=== PATIENT | male | born 1960 | race African-American/Black ===

== ENCOUNTER 2017-03-17 09:12 | Emergency (ER) | payer MEDICAID ==
[~2017-03-17] VITALS: Ht 162.6 cm; Wt 102.5 kg
[2017-03-17] MEDS ORDERED: ONDANSETRON HCL 4MG/2ML VIAL IV STA (09:36)
[2017-03-17] MEDS ORDERED: MORPHINE SULFATE 4 MG/ML CPJ (NOT FOR IM USE) IV STA (09:36)
[2017-03-17] MEDS ORDERED: SODIUM CHLORIDE 0.9% 1,000 ML IV ONE (09:36)
[2017-03-17 09:58] LABS: HEMOGLOBIN. 14.3 g/dL (14.0-18.0); MEAN CORPUSCULAR VOLUME 79.9 fL (80.0-94.0); MEAN PLATELET VOLUME 9.4 fl (7.4-10.4); PLATELET 182 x1000/uL (130-400); RED BLOOD CELL COUNT 5.51 mill/uL (4.7-6.1); RED CELL DISTRIBUTION WIDTH 21.4 % (11.6-14.6)
[2017-03-17 10:08] LABS: INR 1.1; PARTIAL THROMBOPLASTIN TIME 31.7 sec (24.0-34.0); PROTHROMBIN TIME 11.9 sec
[2017-03-17 10:13] LABS: CARBON DIOXIDE 26 mEq/L (21-32); CHLORIDE 110 mEq/L (98-107)
[2017-03-17 10:14] LABS: PLATELET ESTIMATE NORMAL
[2017-03-17] MEDS ORDERED: MORPHINE SULFATE 4 MG/ML CPJ (NOT FOR IM USE) IV ONE ×2 (11:30→12:45)
[2017-03-17 11:47] LABS: CLARITY URINE CLEAR (CLEAR); COLOR URINE YELLOW (YELLOW); GLUCOSE URINE NEGATIVE (NEGATIVE); KETONES URINE NEGATIVE (NEGATIVE); LEUKOCYTE ESTERASE URINE NEGATIVE (NEGATIVE); NITRITE URINE NEGATIVE (NEGATIVE); OCCULT BLOOD URINE NEGATIVE (NEGATIVE); PH URINE 5.5 (4.5-8.0); PROTEIN URINE NEGATIVE (NEGATIVE); SPECIFIC GRAVITY URINE 1.033 (1.005-1.030); UROBILINOGEN URINE 0.2 E.U./dL (0.2-1.0)
[2017-03-17] MEDS ORDERED: LEVOFLOXACIN 750MG PREMIX 150 ML IV ONE (12:00)
[2017-03-17] MEDS ORDERED: METRONIDAZOLE 500 MG PREMIX 100 ML IV ONE (12:00)
[2017-03-17] MEDS ORDERED: SODIUM CHLORIDE 0.9% 10ML VIAL ONE (13:57)
[2017-03-17] MEDS ORDERED: IOHEXOL-300 100 ML BOTTLE ONE (13:57)
[2017-03-17 14:38] VITALS: BP 138/73
== END 2017-03-17 14:38 | disposition short-term general hospital (02) ==
LOC: ER 09:36
DX: K57.30 Diverticulosis of large intestine without perforation or abscess without bleeding (principal); N20.0 Calculus of kidney; K62.5 Hemorrhage of anus and rectum; D18.03 Hemangioma of intra-abdominal structures; E78.00 Pure hypercholesterolemia, unspecified; I10 Essential (primary) hypertension; Z88.0 Allergy status to penicillin; Z88.2 Allergy status to sulfonamides; Z87.828 Personal history of other (healed) physical injury and trauma; Z98.890 Other specified postprocedural states
CPT/HCPCS: 36415; 71010; 74177; 80053; 81003; 83690; 85025; 85610; 85730; 86850; 86900; 86901; 93005; 96361; 96365; 96375; 96376; 99285; A4216; J1956; J2270; J2405; J3490; J7030; Q9967; Z7610

== ENCOUNTER 2019-04-11 07:25 | Emergency (ER) | payer MEDICAID ==
[~2019-04-11] VITALS: Ht 170.2 cm; Wt 88.0 kg
[2019-04-11] MEDS ORDERED: ONDANSETRON HCL 4MG/2ML INJ IV STA ×2 (08:24→12:06)
[2019-04-11] MEDS ORDERED: SODIUM CHLORIDE 0.9% 1,000 ML IV ONE (08:24)
[2019-04-11] MEDS ORDERED: MORPHINE SULFATE 4 MG/ML CPJ (NOT FOR IM USE) IV STA ×2 (08:24→12:06)
[2019-04-11] MEDS ORDERED: VANCOMYCIN 1 G PREMIX 200 ML IV ONE (09:00)
[2019-04-11] MEDS ORDERED: SODIUM CHLORIDE 0.9% 1000ML BAG (SEPSIS BOLUS) IV ONE (09:00)
[2019-04-11] MEDS ORDERED: PIPERACILLIN/TAZ 3.375G PREMIX 50 ML IV ONE (09:00)
[2019-04-11 09:54] LABS: CLARITY URINE CLEAR (CLEAR); COLOR URINE YELLOW (YELLOW); KETONES URINE NEGATIVE (NEGATIVE); LEUKOCYTE ESTERASE URINE TRACE (NEGATIVE); NITRITE URINE NEGATIVE (NEGATIVE); OCCULT BLOOD URINE NEGATIVE (NEGATIVE); PH URINE 5.5 (4.5-8.0); PROTEIN URINE NEGATIVE (NEGATIVE); SPECIFIC GRAVITY URINE 1.026 (1.005-1.030); UROBILINOGEN URINE 0.2 E.U./dL (0.2-1.0)
[2019-04-11 09:59] LABS: HEMATOCRIT. 39.5 % (42.0-52.0); MEAN CORPUSCULAR HEMOGLOBIN 27.4 pg (28.0-32.0); MEAN CORPUSCULAR VOLUME 83.1 fL (80.0-94.0); MEAN PLATELET VOLUME 8.5 fl (7.4-10.4); PLATELET 450 x1000/uL (130-400); RED BLOOD CELL COUNT 4.75 mill/uL (4.7-6.1); RED CELL DISTRIBUTION WIDTH 17.6 % (11.6-14.6)
[2019-04-11 10:00] LABS: CHLORIDE 109 mEq/L (98-107)
[2019-04-11 10:26] LABS: PLATELET ESTIMATE INCREASED
[2019-04-11] MEDS ORDERED: IOHEXOL-300 100 ML BOTTLE ONE (10:55)
[2019-04-11 14:00] VITALS: BP 150/77
== END 2019-04-11 14:10 | disposition home or self-care (01) ==
LOC: ER 07:25
DX: R10.9 Unspecified abdominal pain (principal); N50.819 Testicular pain, unspecified; N12 Tubulo-interstitial nephritis, not specified as acute or chronic; E78.00 Pure hypercholesterolemia, unspecified; I10 Essential (primary) hypertension; Z88.0 Allergy status to penicillin; Z88.2 Allergy status to sulfonamides
CPT/HCPCS: 36415; 74177; 76870; 80053; 81003; 83605; 83690; 85025; 87040; 87086; 93976; 96361; 96374; 96375; 96376; 99284; J2270; J2405; J2543; J3370; J7030; Q9967; Z7610

== ENCOUNTER 2020-03-02 09:52 | Emergency (ER) | payer MEDICAID ==
[~2020-03-02] VITALS: Ht 167.6 cm; Wt 82.0 kg
[2020-03-02] MEDS ORDERED: zofran (10:07)
[2020-03-02] MEDS ORDERED: hydrocodone (10:07)
[2020-03-02] MEDS ORDERED: nitroglycerin (10:07)
[2020-03-02] MEDS ORDERED: lipitor (10:07)
[2020-03-02] MEDS ORDERED: MORPHINE SULFATE 4 MG/ML CPJ (NOT FOR IM USE) IV STA (10:26)
[2020-03-02] MEDS ORDERED: ONDANSETRON HCL 4MG/2ML INJ IV STA (10:26)
[2020-03-02] MEDS ORDERED: ASPIRIN 325MG EC TABLET PO ONE (10:30)
[2020-03-02 11:28] LABS: HEMATOCRIT. 44.9 % (42.0-52.0); HEMOGLOBIN. 14.5 g/dL (14.0-18.0); MEAN CORPUSCULAR HEMOGLOBIN 28.1 pg (28.0-32.0); MEAN CORPUSCULAR VOLUME 86.9 fL (80.0-94.0); MEAN PLATELET VOLUME 8.2 fl (7.4-10.4); PLATELET 461 x1000/uL (130-400); RED BLOOD CELL COUNT 5.17 mill/uL (4.7-6.1); RED CELL DISTRIBUTION WIDTH 20.1 % (11.6-14.6)
[2020-03-02 11:36] LABS: INR 1.1
[2020-03-02 11:37] LABS: CHLORIDE 111 mEq/L (98-107)
[2020-03-02 11:41] LABS: PLATELET ESTIMATE SLIGHTLY INCREASED
[2020-03-02 12:32] LABS: CLARITY URINE TURBID (CLEAR); COLOR URINE YELLOW (YELLOW); KETONES URINE NEGATIVE (NEGATIVE); LEUKOCYTE ESTERASE URINE NEGATIVE (NEGATIVE); NITRITE URINE NEGATIVE (NEGATIVE); OCCULT BLOOD URINE NEGATIVE (NEGATIVE); PH URINE 8.5 (4.5-8.0); PROTEIN URINE NEGATIVE (NEGATIVE); SPECIFIC GRAVITY URINE 1.021 (1.005-1.030); UROBILINOGEN URINE 0.2 E.U./dL (0.2-1.0)
[2020-03-02] MEDS ORDERED: MORPHINE SULFATE 2 MG/ML CPJ (NOT FOR IM USE) IV ONE (14:15)
[2020-03-02 16:00] VITALS: BP 169/95
[2020-03-03] MEDS ORDERED: IOHEXOL-300 100 ML BOTTLE ONE (09:19)
== END 2020-03-02 16:23 | disposition short-term general hospital (02) ==
LOC: ER 10:12 → CANBEDREQ 17:16
DX: R07.9 Chest pain, unspecified (principal); R10.9 Unspecified abdominal pain; K57.90 Diverticulosis of intestine, part unspecified, without perforation or abscess without bleeding; J44.9 Chronic obstructive pulmonary disease, unspecified; E78.00 Pure hypercholesterolemia, unspecified; I10 Essential (primary) hypertension; Z88.0 Allergy status to penicillin; Z88.2 Allergy status to sulfonamides; Z85.830 Personal history of malignant neoplasm of bone; Z98.890 Other specified postprocedural states; Z87.891 Personal history of nicotine dependence
CPT/HCPCS: 36415; 71045; 74177; 80053; 81003; 83690; 83880; 84484; 85025; 85610; 93005; 96374; 96375; 96376; 99285; J2270; J2405; Q9967

== ENCOUNTER 2020-03-23 20:55 | Emergency (ER) | payer MEDICAID ==
[~2020-03-23] VITALS: Ht 188 cm; Wt 95.0 kg
[~2020-03-23 20:55] MED LIST: hydrocodone; lipitor; nitroglycerin; zofran
[2020-03-23] MEDS ORDERED: ASPIRIN 81MG TABLET PO ONE (21:45)
[2020-03-23] MEDS ORDERED: VISCOUS LIDOCAINE 2% 15 ML UDC PO ONE (22:30)
[2020-03-23] MEDS ORDERED: MAGNESIUM/ALUMINUM HYDROXIDE/SIMETHICONE 30ML UDC PO ONE (22:30)
[2020-03-23] MEDS ORDERED: NITROGLYCERIN 0.4MG TABLET SL SL PRN (22:30)
[2020-03-23 23:25] LABS: CHLORIDE 112 mEq/L (98-107)
[2020-03-23] MEDS ORDERED: KETOROLAC 15MG/ML VIAL IV ONE (23:30)
[2020-03-23] MEDS ORDERED: SODIUM CHLORIDE 0.9% 500 ML IV ONE (23:30)
[2020-03-24 00:13] LABS: BASOPHILS % 0.6 % (0.0-2.0); EOSINOPHILS % 1.5 % (0.0-5.0); HEMATOCRIT. 45.1 % (42.0-52.0); LYMPHOCYTES % 7.9 % (20.0-50.0); MEAN CORPUSCULAR HEMOGLOBIN 29.5 pg (28.0-32.0); MEAN CORPUSCULAR VOLUME 88.5 fL (80.0-94.0); MEAN PLATELET VOLUME 8.2 fl (7.4-10.4); MONOCYTES % 4.9 % (2.0-8.0); NEUTROPHILS % 85.1 % (40.0-76.0); PLATELET 334 x1000/uL (130-400); RED CELL DISTRIBUTION WIDTH 20.4 % (11.6-14.6)
[2020-03-24 01:30] VITALS: BP 164/92
[2020-03-24] MEDS ORDERED: MORPHINE SULFATE 4 MG/ML CPJ (NOT FOR IM USE) IV NR (01:45)
[2020-03-24] MEDS ORDERED: CLONIDINE 0.1MG TABLET PO PRN (02:00)
[2020-03-24] MEDS ORDERED: MORPHINE SULFATE 4 MG/ML CPJ (NOT FOR IM USE) IV PRN (02:00)
[2020-03-24] MEDS ORDERED: DIPHENHYDRAMINE 50MG/ML VIAL IV PRN (02:00)
[2020-03-24] MEDS ORDERED: ONDANSETRON HCL 4MG/2ML INJ IV PRN (02:00)
[2020-03-24] MEDS ORDERED: GUAIFENESIN 200MG/10ML SUGAR FREE UDC PO PRN (02:00)
[2020-03-24] MEDS ORDERED: ZOLPIDEM TARTRATE 5MG TABLET PO PRN (02:00)
[2020-03-24] MEDS ORDERED: ACETAMINOPHEN 325MG TABLET PO PRN ×2 (02:00)
[2020-03-24] MEDS ORDERED: MAGNESIUM/ALUMINUM HYDROXIDE/SIMETHICONE 30ML UDC PO PRN (02:00)
[2020-03-24] MEDS ORDERED: HYDRALAZINE 20MG/ML VIAL IV PRN (03:15)
[2020-03-24] MEDS ORDERED: ENOXAPARIN 30MG/0.3ML SYR SUBCUT SCH (04:00)
[2020-03-24] MEDS ORDERED: SODIUM CHLORIDE 0.9% INJ 3ML FLUSH IVF SCH (06:00)
[2020-03-24 07:37] LABS: *AMPHETAMINES SCREEN URINE NEGATIVE (NEGATIVE); *BARBITURATES SCREEN URINE NEGATIVE (NEGATIVE); *BENZODIAZEPINES SCREEN URINE NEGATIVE (NEGATIVE); *COCAINE SCREEN URINE NEGATIVE (NEGATIVE); METHADONE URINE SCREEN NEGATIVE (NEGATIVE); OPIATES URINE SCREEN NEGATIVE (NEGATIVE); PHENCYCLIDINE URINE SCREEN NEGATIVE (NEGATIVE)
[2020-03-24 07:38] LABS: CANNABINOID URINE SCREEN NEGATIVE (NEGATIVE)
[2020-03-24] MEDS ORDERED: OMEPRAZOLE 20MG CAPSULE EXTENDED RELEASE PO SCH (07:50)
[2020-03-24] MEDS ORDERED: ATENOLOL 50 MG TABLET PO SCH (09:00)
[2020-03-24] MEDS ORDERED: AMLODIPINE 10MG TABLET PO SCH (09:00)
[2020-03-24] MEDS ORDERED: ISOSORBIDE MONONITRATE 60MG TABLET SR 24HR PO SCH (09:00)
[2020-03-24] MEDS ORDERED: ATORVASTATIN CALCIUM 40MG TABLET PO SCH (21:00)
== END 2020-03-24 05:29 | disposition left against medical advice (07) ==
LOC: ER 20:55 → EDBEDREQTM 23:53 → EDBEDREQ 23:53 → ER 03-24 05:29 → CANBEDREQ 03-24 06:45
DX: R07.9 Chest pain, unspecified (principal); I10 Essential (primary) hypertension; E78.00 Pure hypercholesterolemia, unspecified; J44.9 Chronic obstructive pulmonary disease, unspecified; Z88.0 Allergy status to penicillin; Z88.2 Allergy status to sulfonamides
CPT/HCPCS: 36415; 71045; 80053; 80305; 83880; 84484; 85025; 93005; 96374; 96375; 99285; J1885; J2270; J7040; Z7610

== ENCOUNTER 2020-06-09 21:28 | Emergency (ER) | payer MEDICAID ==
[~2020-06-09] VITALS: Ht 165.1 cm; Wt 99.0 kg
[2020-06-09] MEDS ORDERED: MORPHINE SULFATE 4 MG/ML CPJ (NOT FOR IM USE) IV STA (21:53)
[2020-06-09] MEDS ORDERED: FAMOTIDINE 20MG/2ML VIAL IV STA (21:53)
[2020-06-09] MEDS ORDERED: ONDANSETRON HCL 4MG/2ML INJ IV STA (21:53)
[2020-06-09] MEDS ORDERED: SODIUM CHLORIDE 0.9% 1,000 ML IV ONE (21:53)
[2020-06-09 22:44] LABS: HEMOGLOBIN. 15.5 g/dL (14.0-18.0); MEAN CORPUSCULAR HEMOGLOBIN 32.2 pg (28.0-32.0); MEAN CORPUSCULAR VOLUME 93.7 fL (80.0-94.0); MEAN PLATELET VOLUME 9.1 fl (7.4-10.4); PLATELET 325 x1000/uL (130-400); RED BLOOD CELL COUNT 4.81 mill/uL (4.7-6.1); RED CELL DISTRIBUTION WIDTH 16.9 % (11.6-14.6)
[2020-06-09 22:45] LABS: CLARITY URINE TURBID (CLEAR); COLOR URINE DARK YELLOW (YELLOW); KETONES URINE NEGATIVE (NEGATIVE); LEUKOCYTE ESTERASE URINE 2+ (NEGATIVE); NITRITE URINE POSITIVE (NEGATIVE); OCCULT BLOOD URINE NEGATIVE (NEGATIVE); PH URINE >=9.0 (4.5-8.0); PROTEIN URINE 2+ (NEGATIVE); SPECIFIC GRAVITY URINE 1.028 (1.005-1.030)
[2020-06-09 22:50] LABS: CHLORIDE 107 mEq/L (98-107)
[2020-06-09 22:56] LABS: PLATELET ESTIMATE NORMAL
[2020-06-09] MEDS ORDERED: METRONIDAZOLE 500 MG PREMIX 100 ML IV NR (23:15)
[2020-06-09] MEDS ORDERED: LEVOFLOXACIN 750MG PREMIX 150 ML IV NR (23:15)
[2020-06-09] MEDS ORDERED: IOHEXOL-300 100 ML BOTTLE ONE (23:29)
[2020-06-10] MEDS ORDERED: MORPHINE SULFATE 4 MG/ML CPJ (NOT FOR IM USE) IV NR
[2020-06-10 02:18] VITALS: BP 156/98
== END 2020-06-10 02:47 | disposition short-term general hospital (02) ==
LOC: ER 21:28
DX: N30.90 Cystitis, unspecified without hematuria (principal); R16.1 Splenomegaly, not elsewhere classified; R11.2 Nausea with vomiting, unspecified; I10 Essential (primary) hypertension; J45.909 Unspecified asthma, uncomplicated; Z88.0 Allergy status to penicillin; Z88.2 Allergy status to sulfonamides
CPT/HCPCS: 36415; 74177; 80053; 81003; 83605; 83690; 85025; 93005; 96361; 96365; 96367; 96375; 96376; 99285; J1956; J2270; J2405; J3490; J7030; Q9967

== ENCOUNTER 2020-08-28 02:12 | Emergency (ER) | payer MEDICAID ==
[~2020-08-28] VITALS: Ht 175.3 cm; Wt 84.0 kg
[2020-08-28] MEDS ORDERED: MORPHINE SULFATE 4 MG/ML CPJ (NOT FOR IM USE) IV STA (02:42)
[2020-08-28] MEDS ORDERED: NITROGLYCERIN OINT 1GM/INCH UDPKT TD ONE (02:45)
[2020-08-28] MEDS ORDERED: IOHEXOL-350 100 ML BOTTLE ONE (02:58)
[2020-08-28 03:17] LABS: CHLORIDE 112 mEq/L (98-107)
[2020-08-28 03:20] LABS: INR 1.1; PROTHROMBIN TIME 11.2 sec (9.6-11.0)
[2020-08-28 03:32] LABS: BASOPHILS % 0.5 % (0.0-2.0); EOSINOPHILS % 1.1 % (0.0-5.0); HEMATOCRIT. 41.1 % (42.0-52.0); LYMPHOCYTES % 8.4 % (20.0-50.0); MEAN CORPUSCULAR HEMOGLOBIN 32.4 pg (28.0-32.0); MEAN PLATELET VOLUME 8.7 fl (7.4-10.4); MONOCYTES % 4.8 % (2.0-8.0); NEUTROPHILS % 85.2 % (40.0-76.0); PLATELET 380 x1000/uL (130-400); RED BLOOD CELL COUNT 4.33 mill/uL (4.7-6.1); RED CELL DISTRIBUTION WIDTH 16.2 % (11.6-14.6)
[2020-08-28] MEDS ORDERED: MORPHINE SULFATE 2 MG/ML CPJ (NOT FOR IM USE) IV ONE (05:30)
[2020-08-28 09:05] VITALS: BP 148/91
== END 2020-08-28 11:11 | disposition short-term general hospital (02) ==
LOC: ER 02:12 → CANBEDREQ 16:46
DX: R07.89 Other chest pain (principal); E11.9 Type 2 diabetes mellitus without complications; I10 Essential (primary) hypertension; Z88.0 Allergy status to penicillin; Z88.2 Allergy status to sulfonamides
CPT/HCPCS: 36415; 71045; 71275; 74174; 80053; 83880; 84484; 85025; 85610; 93005; 96374; 96376; 99285; J2270; Q9967

== ENCOUNTER 2021-12-11 23:25 | Emergency (ER) | payer MEDICAID ==
[~2021-12-11] VITALS: Ht 177.8 cm; Wt 70.0 kg
[2021-12-11] MEDS ORDERED: MORPHINE SULFATE 4 MG/ML CPJ (NOT FOR IM USE) IV STA (23:57)
[2021-12-11] MEDS ORDERED: ONDANSETRON HCL 4MG/2ML INJ IV STA (23:57)
[2021-12-12] MEDS ORDERED: NITROGLYCERIN OINT 1GM/INCH UDPKT TD ONE
[2021-12-12 00:46] LABS: BASOPHILS % 0.4 % (0.0-2.0); CHLORIDE 111 mEq/L (98-107); EOSINOPHILS % 0.7 % (0.0-5.0); HEMATOCRIT. 41.1 % (42.0-52.0); HEMOGLOBIN. 14.4 g/dL (14.0-18.0); LYMPHOCYTES % 7.5 % (20.0-50.0); MEAN CORPUSCULAR HEMOGLOBIN 33.1 pg (28.0-32.0); MEAN CORPUSCULAR VOLUME 94.7 fL (80.0-94.0); MONOCYTES % 4.1 % (2.0-8.0); NEUTROPHILS % 87.3 % (40.0-76.0); RED BLOOD CELL COUNT 4.34 mill/uL (4.7-6.1); RED CELL DISTRIBUTION WIDTH 18.7 % (11.6-14.6)
[2021-12-12 03:43] LABS: MEAN PLATELET VOLUME 7.8 fl (7.4-10.4); PLATELET 356 x1000/uL (130-400)
[2021-12-12] MEDS ORDERED: MORPHINE SULFATE 4 MG/ML CPJ (NOT FOR IM USE) IV ONE ×3 (04:45→11:15)
[2021-12-12] MEDS ORDERED: IOHEXOL-350 100 ML BOTTLE ONE (05:16)
[2021-12-12] MEDS ORDERED: MAGNESIUM/ALUMINUM HYDROXIDE/SIMETHICONE 30ML UDC PO STA (05:31)
[2021-12-12] MEDS ORDERED: VISCOUS LIDOCAINE 2% 15 ML UDC PO STA (05:31)
[2021-12-12] MEDS ORDERED: NITROGLYCERIN 0.4MG TABLET SL SL ONE (07:00)
[2021-12-12] MEDS ORDERED: ACETAMINOPHEN 325MG TABLET PO ONE (09:30)
[2021-12-12 11:25] VITALS: BP 113/82
== END 2021-12-12 12:22 | disposition short-term general hospital (02) ==
LOC: ER 23:25
DX: R07.89 Other chest pain (principal); R11.0 Nausea; E11.9 Type 2 diabetes mellitus without complications; I10 Essential (primary) hypertension; Z88.0 Allergy status to penicillin; Z88.2 Allergy status to sulfonamides; Z85.6 Personal history of leukemia
CPT/HCPCS: 36415; 71045; 71275; 74176; 80053; 83605; 83690; 83880; 84484; 85025; 85379; 96374; 96375; 96376; 99285; J2270; J2405; Q9967

== ENCOUNTER 2022-08-16 12:24 | Inpatient (IN) | payer MEDICAID ==
[~2022-08-16] VITALS: Ht 172.7 cm; Wt 96.6 kg
[2022-08-16] MEDS ORDERED: ONDANSETRON HCL 4MG/2ML INJ IV STA ×3 (12:43→19:35)
[2022-08-16] MEDS ORDERED: MORPHINE SULFATE 4 MG/ML CPJ (NOT FOR IM USE) IV STA ×3 (12:43→19:35)
[2022-08-16] MEDS ORDERED: SODIUM CHLORIDE 0.9% 1000ML BAG (SEPSIS BOLUS) IV ONE (12:45)
[2022-08-16] MEDS ORDERED: SODIUM CHLORIDE 0.9% 1,000 ML IV ONE (12:45)
[2022-08-16] MEDS ORDERED: OSELTAMIVIR 75MG CAPSULE PO ONE (13:00)
[2022-08-16 14:09] LABS: CHLORIDE 112 mEq/L (98-107); INR 1.1; PROTHROMBIN TIME 11.5 sec (9.6-11.0)
[2022-08-16 14:42] LABS: BASOPHILS % 0.5 % (0.0-2.0); EOSINOPHILS % 1.8 % (0.0-5.0); HEMATOCRIT. 41.9 % (42.0-52.0); HEMOGLOBIN. 14.1 g/dL (14.0-18.0); LYMPHOCYTES % 8.4 % (20.0-50.0); MEAN CORPUSCULAR HEMOGLOBIN 33.5 pg (28.0-32.0); MEAN CORPUSCULAR VOLUME 99.3 fL (80.0-94.0); MEAN PLATELET VOLUME 8.3 fl (7.4-10.4); MONOCYTES % 5.5 % (2.0-8.0); NEUTROPHILS % 83.8 % (40.0-76.0); PLATELET 314 x1000/uL (130-400); RED BLOOD CELL COUNT 4.22 mill/uL (4.7-6.1); RED CELL DISTRIBUTION WIDTH 15.2 % (11.6-14.6)
[2022-08-16] MEDS ORDERED: ASPIRIN 325MG EC TABLET PO ONE (15:15)
[2022-08-16 15:36] LABS: CLARITY URINE TURBID (CLEAR); COLOR URINE ORANGE (YELLOW); KETONES URINE NEGATIVE (NEGATIVE); LEUKOCYTE ESTERASE URINE 1+ (NEGATIVE); NITRITE URINE NEGATIVE (NEGATIVE); OCCULT BLOOD URINE NEGATIVE (NEGATIVE); PH URINE >=9.0 (4.5-8.0); PROTEIN URINE 1+ (NEGATIVE); SPECIFIC GRAVITY URINE 1.014 (1.005-1.030); UROBILINOGEN URINE 0.2 E.U./dL (0.2-1.0)
[2022-08-16] MEDS ORDERED: LEVOFLOXACIN 750MG PREMIX 150 ML IV ONE (17:00)
[2022-08-16] MEDS ORDERED: IPRATROPIUM/ALBUTEROL 0.5-3(2.5)MG/3ML NEB NEB SCH (19:00)
[2022-08-16] MEDS ORDERED: CEFTRIAXONE 1 G PREMIX 50 ML IV SCH (19:00)
[2022-08-16] MEDS ORDERED: HYDROCODONE/ACETAMINOPHEN 5/325MG TABLET PO PRN (19:00)
[2022-08-16] MEDS ORDERED: ONDANSETRON HCL 4MG/2ML INJ IV PRN (19:00)
[2022-08-16] MEDS ORDERED: CLONIDINE 0.1MG TABLET PO PRN (19:00)
[2022-08-16] MEDS ORDERED: ACETAMINOPHEN 325MG TABLET PO PRN ×2 (19:00)
[2022-08-16] MEDS ORDERED: MAGNESIUM/ALUMINUM HYDROXIDE/SIMETHICONE 30ML UDC PO PRN (19:00)
[2022-08-16] MEDS ORDERED: IPRATROPIUM/ALBUTEROL 0.5-3(2.5)MG/3ML NEB NEB PRN (19:00)
[2022-08-16] MEDS ORDERED: THROAT LOZENGES-BENZOCAINE/MENTH/CETYLPYRD CL LOZENGES MM PRN (19:30)
[2022-08-16 20:00] VITALS: BP 151/83
[2022-08-16 21:00] VITALS: BP 151/83
[2022-08-16] MEDS ORDERED: ENOXAPARIN 40MG/0.4ML SYR SUBCUT SCH (21:00)
[2022-08-16] MEDS ORDERED: CEFTRIAXONE 1,000 MG in DEXTROSE 5% WATER 50 ML IV SCH (21:00)
[2022-08-16] MEDS ORDERED: AZITHROMYCIN 500 MG in DEXT 5% WATER 250 ML IV SCH (22:00)
[2022-08-16] MEDS: HYDROCODONE/ACETAMINOPHEN 7.5/325MG TABLET PO PRN (22:46)
[2022-08-17] VITALS: BP 129/77
[2022-08-17] MEDS: NITROGLYCERIN 0.4MG TABLET SL SL PRN ×6 (00:43→04:43)
[2022-08-17 03:08] LABS: BASOPHILS % 0.5 % (0.0-2.0); EOSINOPHILS % 1.5 % (0.0-5.0); HEMATOCRIT. 43.2 % (42.0-52.0); HEMOGLOBIN. 14.3 g/dL (14.0-18.0); LYMPHOCYTES % 9.4 % (20.0-50.0); MEAN CORPUSCULAR HEMOGLOBIN 33.4 pg (28.0-32.0); MEAN CORPUSCULAR VOLUME 100.9 fL (80.0-94.0); MEAN PLATELET VOLUME 8.2 fl (7.4-10.4); MONOCYTES % 5.2 % (2.0-8.0); NEUTROPHILS % 83.4 % (40.0-76.0); PLATELET 292 x1000/uL (130-400); RED BLOOD CELL COUNT 4.28 mill/uL (4.7-6.1); RED CELL DISTRIBUTION WIDTH 15.2 % (11.6-14.6)
[2022-08-17 04:00] VITALS: BP 154/79
[2022-08-17 04:09] LABS: CHLORIDE 110 mEq/L (98-107)
[2022-08-17 04:27] LABS: T4 FREE 0.92 ng/dL (0.76-1.46)
[2022-08-17] MEDS: GUAIFENESIN 200MG/10ML SUGAR FREE UDC PO PRN ×2 (04:51→09:41)
[2022-08-17 08:34] VITALS: BP 158/95
[2022-08-17] MEDS ORDERED: ASCORBIC ACID 250 MG TABLET PO SCH (09:00)
[2022-08-17] MEDS ORDERED: DEXAMETHASONE 4MG/ML 1ML VIAL IV SCH (09:00)
[2022-08-17] MEDS ORDERED: CHOLECALCIFEROL (D3) 1000 UNIT TABLET PO SCH (09:00)
[2022-08-17] MEDS ORDERED: PANTOPRAZOLE SODIUM 40 MG/VIAL IV SCH (09:00)
[2022-08-17] MEDS ORDERED: ZINC SULFATE 220 MG ( 50 ) CAPSULE PO SCH (09:00)
[2022-08-17] MEDS ORDERED: ROSU40TA MT (10:38)
[2022-08-17] MEDS ORDERED: TAMS-11 PO (10:38)
[2022-08-17] MEDS ORDERED: HYDR500C18 PO (10:38)
[2022-08-17] MEDS ORDERED: CYAN50003 MT (10:44)
[2022-08-17] MEDS ORDERED: BACL-141 MT (10:44)
[2022-08-17] MEDS ORDERED: DULO20CA18 MT (10:44)
[2022-08-17] MEDS ORDERED: CHOL400D7 MT (10:44)
[2022-08-17] MEDS: HYDROCODONE/ACETAMINOPHEN 7.5/325MG TABLET PO PRN (10:52)
[2022-08-17] MEDS ORDERED: METO25TA6 PO (11:02)
[2022-08-17] MEDS ORDERED: ISOS20TA57 MT (11:02)
[2022-08-17] MEDS ORDERED: TAMSULOSIN HCL 0.4MG SR CAPSULE PO SCH (12:00)
[2022-08-17] MEDS ORDERED: METOPROLOL TARTRATE 25MG TABLET PO SCH (12:00)
[2022-08-17] MEDS ORDERED: DULOXETINE HCL 20MG DR CAPSULE PO SCH (12:00)
[2022-08-17] MEDS ORDERED: ISOSORBIDE MONONITRATE 20MG TABLET PO SCH (12:00)
[2022-08-17 12:08] VITALS: BP 135/80
[2022-08-17] MEDS ORDERED: HYDROXYUREA 500MG CAPSULE PO SCH (14:00)
[2022-08-17] MEDS ORDERED: GUAIFENESIN 200MG/10ML SUGAR FREE UDC PO SCH (16:00)
[2022-08-17] MEDS ORDERED: AZITHROMYCIN 500 MG in DEXT 5% WATER 250 ML IV SCH (21:00)
[2022-08-17] MEDS ORDERED: ATORVASTATIN CALCIUM 40MG TABLET PO SCH (21:00)
[2022-08-17] MEDS ORDERED: MEDICATION NOT ON FORMULARY EA (Rosuvastatin Calcium (Crestor) 1 TAB) MT SCH (21:00)
== END 2022-08-17 11:45 | disposition left against medical advice (07) | DRG 137 ==
LOC: ER 12:24 → 7EST 17:29 → EDBEDREQ 17:35 → EDBEDREQTM 17:35 → SUPCPDRO 18:13
PROVIDERS: ADMIT Internal Medicine; ATTEND Internal Medicine
DX: U07.1 COVID-19 (principal); J96.01 Acute respiratory failure with hypoxia; E44.0 Moderate protein-calorie malnutrition; C95.90 Leukemia, unspecified not having achieved remission; I11.9 Hypertensive heart disease without heart failure; N39.0 Urinary tract infection, site not specified; I25.10 Atherosclerotic heart disease of native coronary artery without angina pectoris; J44.9 Chronic obstructive pulmonary disease, unspecified; Z53.29 Procedure and treatment not carried out because of patient's decision for other reasons; I25.2 Old myocardial infarction; Z88.0 Allergy status to penicillin; Z88.2 Allergy status to sulfonamides
CPT/HCPCS: 36415; 71045; 74176; 80053; 81003; 82728; 83605; 83615; 83880; 84145; 84439; 84443; 84484; 85025; 85379; 86850; 86900; 87426; 87804; 93005; 94640; 99285; C9113; C9803; J0456; J0696; J1100; J1956; J2270; J2405; J7030; J7060

== ENCOUNTER 2022-10-17 04:35 | Emergency (ER) | payer MEDICAID ==
[~2022-10-17] VITALS: Ht 177.8 cm; Wt 118.0 kg
[~2022-10-17 04:35] MED LIST changes: +BACL-141 MT; +CHOL400D7 MT; +CYAN50003 MT; +DULO20CA18 MT; +HYDR500C18 PO; +ISOS20TA57 MT; +METO25TA6 PO; +ROSU40TA MT; +TAMS-11 PO
[2022-10-17] MEDS ORDERED: MORPHINE SULFATE 4 MG/ML CPJ (NOT FOR IM USE) IV STA (05:37)
[2022-10-17 05:40] LABS: HEMATOCRIT. 39.5 % (42.0-52.0); HEMOGLOBIN. 13.3 g/dL (14.0-18.0); MEAN CORPUSCULAR HEMOGLOBIN 33.4 pg (28.0-32.0); MEAN CORPUSCULAR VOLUME 99.1 fL (80.0-94.0); MEAN PLATELET VOLUME 8.6 fl (7.4-10.4); PLATELET 207 x1000/uL (130-400); RED BLOOD CELL COUNT 3.99 mill/uL (4.7-6.1); RED CELL DISTRIBUTION WIDTH 17.2 % (11.6-14.6)
[2022-10-17 05:57] LABS: CHLORIDE 113 mEq/L (98-107)
[2022-10-17 07:08] LABS: NUCLEATED RED BLOOD CELLS 1 /100 WBC
[2022-10-17 07:10] LABS: PLATELET ESTIMATE NORMAL
[2022-10-17] MEDS ORDERED: KETOROLAC 30MG/ML VIAL IV ONE (08:00)
[2022-10-17] MEDS ORDERED: MORPHINE SULFATE 4 MG/ML CPJ (NOT FOR IM USE) IV ONE (12:00)
[2022-10-17] MEDS ORDERED: IOHEXOL-350 100 ML BOTTLE ONE (12:40)
[2022-10-17] MEDS ORDERED: KETOROLAC 15MG/ML VIAL IV NR (15:30)
[2022-10-17] MEDS ORDERED: ZOLPIDEM TARTRATE 5MG TABLET PO PRN (18:00)
[2022-10-17] MEDS ORDERED: DOCUSATE SODIUM 100MG CAPSULE PO PRN (18:00)
[2022-10-17] MEDS ORDERED: ACETAMINOPHEN 325MG TABLET PO PRN ×2 (18:00)
[2022-10-17] MEDS ORDERED: KETOROLAC 15MG/ML VIAL IV PRN (18:00)
[2022-10-17] MEDS ORDERED: MAGNESIUM/ALUMINUM HYDROXIDE/SIMETHICONE 30ML UDC PO PRN (18:00)
[2022-10-17] MEDS ORDERED: GUAIFENESIN 200MG/10ML SUGAR FREE UDC PO PRN (18:00)
[2022-10-17] MEDS ORDERED: NITROGLYCERIN 0.4MG TABLET SL SL PRN (18:00)
[2022-10-17] MEDS ORDERED: ONDANSETRON HCL 4MG/2ML INJ IV PRN (18:00)
[2022-10-17] MEDS ORDERED: IPRATROPIUM/ALBUTEROL 0.5-3(2.5)MG/3ML NEB NEB PRN (18:00)
[2022-10-17] MEDS ORDERED: CLONIDINE 0.1MG TABLET PO PRN (18:00)
[2022-10-17] MEDS ORDERED: IPRATROPIUM BROMIDE (0.02%) 0.5MG/2.5ML NEB HHN PRN (18:15)
[2022-10-17] MEDS ORDERED: ALBUTEROL (0.083%) 2.5MG/3ML NEB HHN PRN (18:15)
[2022-10-17 19:02] LABS: ETHANOL BLOOD < 10 mg/dL; HDL CHOLESTEROL 46 mg/dL (40-59); LDL CHOLESTEROL 53 mg/dL (5-100); T4 FREE 0.77 ng/dL (0.76-1.46); TOTAL IRON BINDING CAPACITY 359 ug/dL (250-450)
[2022-10-17 19:25] LABS: FOLIC ACID (FOLATE) SERUM 7.1 ng/mL (>5.38)
[2022-10-17 20:54] VITALS: BP 151/87
[2022-10-17] MEDS ORDERED: ENOXAPARIN 30MG/0.3ML SYR SUBCUT SCH (21:00)
[2022-10-17] MEDS ORDERED: FAMOTIDINE 20MG TABLET PO SCH (21:00)
[2022-10-17] MEDS ORDERED: METOPROLOL TARTRATE 25MG TABLET PO SCH (21:00)
[2022-10-18] MEDS ORDERED: ASPIRIN 325MG EC TABLET PO SCH (09:00)
== END 2022-10-17 20:56 | disposition short-term general hospital (02) ==
LOC: ER 04:35 → CANBEDREQ 12:06 → ER 20:56
DX: R07.89 Other chest pain (principal); J44.9 Chronic obstructive pulmonary disease, unspecified; I50.9 Heart failure, unspecified; E44.1 Mild protein-calorie malnutrition; I25.2 Old myocardial infarction; E78.00 Pure hypercholesterolemia, unspecified; E66.9 Obesity, unspecified; I11.0 Hypertensive heart disease with heart failure; Z88.0 Allergy status to penicillin; Z88.2 Allergy status to sulfonamides; Z87.891 Personal history of nicotine dependence; Z20.822 Contact with and (suspected) exposure to COVID-19
CPT/HCPCS: 36415; 71045; 71275; 74176; 80053; 80061; 80320; 82607; 82746; 83036; 83540; 83550; 83690; 83880; 84439; 84443; 84484; 85025; 87426; 93005; 96372; 96374; 96375; 96376; 99285; C9803; J1650; J1885; J2270; Q9967; Z7610; G0480

== ENCOUNTER 2022-11-05 22:56 | Emergency (ER) | payer MEDICAID ==
[~2022-11-05] VITALS: Ht 162.6 cm; Wt 107.0 kg
[2022-11-05] MEDS ORDERED: MORPHINE SULFATE 4 MG/ML CPJ (NOT FOR IM USE) IV STA (23:02)
[2022-11-05] MEDS ORDERED: ONDANSETRON HCL 4MG/2ML INJ IV STA (23:02)
[2022-11-05] MEDS ORDERED: SODIUM CHLORIDE 0.9% 1,000 ML IV ONE (23:15)
[2022-11-06] MEDS ORDERED: ONDANSETRON HCL 4MG/2ML INJ IV NR (00:45)
[2022-11-06] MEDS ORDERED: MORPHINE SULFATE 4 MG/ML CPJ (NOT FOR IM USE) IV NR (00:45)
[2022-11-06 01:11] LABS: BASOPHILS % 0.6 % (0.0-2.0); EOSINOPHILS % 1.3 % (0.0-5.0); HEMATOCRIT. 46.5 % (42.0-52.0); LYMPHOCYTES % 10.8 % (20.0-50.0); MEAN CORPUSCULAR HEMOGLOBIN 33.3 pg (28.0-32.0); MEAN CORPUSCULAR VOLUME 96.8 fL (80.0-94.0); MEAN PLATELET VOLUME 7.9 fl (7.4-10.4); MONOCYTES % 4.4 % (2.0-8.0); NEUTROPHILS % 82.9 % (40.0-76.0); PLATELET 286 x1000/uL (130-400); RED BLOOD CELL COUNT 4.81 mill/uL (4.7-6.1); RED CELL DISTRIBUTION WIDTH 17.5 % (11.6-14.6)
[2022-11-06 01:19] LABS: CHLORIDE 110 mEq/L (98-107)
[2022-11-06 01:31] LABS: ETHANOL BLOOD 210 mg/dL
[2022-11-06 01:32] LABS: CLARITY URINE CLEAR (CLEAR); COLOR URINE YELLOW (YELLOW); KETONES URINE NEGATIVE (NEGATIVE); LEUKOCYTE ESTERASE URINE NEGATIVE (NEGATIVE); NITRITE URINE NEGATIVE (NEGATIVE); OCCULT BLOOD URINE NEGATIVE (NEGATIVE); PH URINE 5.5 (4.5-8.0); PROTEIN URINE NEGATIVE (NEGATIVE); SPECIFIC GRAVITY URINE 1.017 (1.005-1.030); UROBILINOGEN URINE 0.2 E.U./dL (0.2-1.0)
[2022-11-06 01:48] LABS: *AMPHETAMINES SCREEN URINE NEGATIVE (NEGATIVE); *BARBITURATES SCREEN URINE NEGATIVE (NEGATIVE); *BENZODIAZEPINES SCREEN URINE NEGATIVE (NEGATIVE); *COCAINE SCREEN URINE NEGATIVE (NEGATIVE); CANNABINOID URINE SCREEN NEGATIVE (NEGATIVE); METHADONE URINE SCREEN NEGATIVE (NEGATIVE); OPIATES URINE SCREEN NEGATIVE (NEGATIVE); PHENCYCLIDINE URINE SCREEN NEGATIVE (NEGATIVE)
[2022-11-06 02:06] LABS: INR 1.1; PROTHROMBIN TIME 11.4 sec (9.6-11.0)
[2022-11-06] MEDS ORDERED: MORPHINE SULFATE 4 MG/ML CPJ (NOT FOR IM USE) IV ONE ×2 (05:30→06:00)
[2022-11-06] MEDS ORDERED: TOPUD PO (06:38)
[2022-11-06] MEDS ORDERED: NITR0.4T49 SL (06:38)
[2022-11-06 07:12] VITALS: BP 128/87
== END 2022-11-06 07:13 | disposition home or self-care (01) ==
LOC: ER 23:07
DX: R10.84 Generalized abdominal pain (principal); F10.129 Alcohol abuse with intoxication, unspecified; Y90.7 Blood alcohol level of 200-239 mg/100 ml; J45.909 Unspecified asthma, uncomplicated; Z85.9 Personal history of malignant neoplasm, unspecified; J44.9 Chronic obstructive pulmonary disease, unspecified; I10 Essential (primary) hypertension; I25.2 Old myocardial infarction; F12.10 Cannabis abuse, uncomplicated; F17.210 Nicotine dependence, cigarettes, uncomplicated; Z79.899 Other long term (current) drug therapy; Z88.0 Allergy status to penicillin
CPT/HCPCS: 36415; 71045; 74176; 80053; 80305; 80320; 81003; 83690; 83880; 84484; 85025; 85610; 86850; 86900; 86901; 93005; 96361; 96374; 96375; 96376; 99285; J2270; J2405; J7030; Z7610; G0480

== ENCOUNTER 2023-02-10 09:47 | Emergency (ER) | payer MEDICAID ==
[~2023-02-10] VITALS: Ht 172.7 cm; Wt 90.0 kg
[~2023-02-10 09:47] MED LIST changes: -CYAN50003 MT; +CYAN50007 MT; +ISMO20 MT; -ISOS20TA57 MT; +NITR0.4T49 SL; +TOPUD PO
[2023-02-10 11:30] LABS: CHLORIDE 111 mEq/L (98-107)
[2023-02-10 11:37] LABS: ETHANOL BLOOD < 10 mg/dL
[2023-02-10 13:00] LABS: CLARITY URINE CLEAR (CLEAR); COLOR URINE DARK YELLOW (YELLOW); KETONES URINE TRACE (NEGATIVE); LEUKOCYTE ESTERASE URINE 1+ (NEGATIVE); NITRITE URINE NEGATIVE (NEGATIVE); OCCULT BLOOD URINE NEGATIVE (NEGATIVE); PROTEIN URINE 1+ (NEGATIVE)
[2023-02-10 14:17] LABS: HEMATOCRIT. 46.6 % (42.0-52.0); HEMOGLOBIN. 15.7 g/dL (14.0-18.0); MEAN CORPUSCULAR VOLUME 95.2 fL (80.0-94.0); MEAN PLATELET VOLUME 8.2 fl (7.4-10.4); PLATELET 410 x1000/uL (130-400); RED BLOOD CELL COUNT 4.89 mill/uL (4.7-6.1); RED CELL DISTRIBUTION WIDTH 14.6 % (11.6-14.6)
[2023-02-10] MEDS ORDERED: NITR-87 MT (14:26)
[2023-02-10 15:13] LABS: *AMPHETAMINES SCREEN URINE NEGATIVE (NEGATIVE); *BENZODIAZEPINES SCREEN URINE NEGATIVE (NEGATIVE); *COCAINE SCREEN URINE NEGATIVE (NEGATIVE); CANNABINOID URINE SCREEN NEGATIVE (NEGATIVE); METHADONE URINE SCREEN NEGATIVE (NEGATIVE); OPIATES URINE SCREEN PRESUMTIVE POSITIVE (NEGATIVE); PHENCYCLIDINE URINE SCREEN NEGATIVE (NEGATIVE)
[2023-02-10 15:34] LABS: *BARBITURATES SCREEN URINE NEGATIVE (NEGATIVE)
[2023-02-10 15:39] LABS: NUCLEATED RED BLOOD CELLS 3 /100 WBC; PLATELET ESTIMATE SLIGHTLY INCREASED
[2023-02-10 15:57] VITALS: BP 155/97
== END 2023-02-10 16:10 | disposition home or self-care (01) ==
LOC: ER 09:50 → CANBEDREQ 15:54 → ER 16:10
DX: R07.89 Other chest pain (principal); I10 Essential (primary) hypertension; F31.9 Bipolar disorder, unspecified; N39.0 Urinary tract infection, site not specified; J44.9 Chronic obstructive pulmonary disease, unspecified; E78.00 Pure hypercholesterolemia, unspecified; I25.2 Old myocardial infarction; F12.10 Cannabis abuse, uncomplicated
CPT/HCPCS: 36415; 71045; 80053; 80305; 80320; 81003; 83880; 84484; 85025; 93005; 99285; G0480

== ENCOUNTER 2023-03-14 08:00 | Emergency (ER) | payer MEDICAID ==
[~2023-03-14] VITALS: Ht 182.9 cm; Wt 114.0 kg
[~2023-03-14 08:00] MED LIST changes: +NITR-87 MT
[2023-03-14 08:03] VITALS: O2SAT 100
[2023-03-14] MEDS ORDERED: MORPHINE SULFATE 4 MG/ML CPJ (NOT FOR IM USE) IV ONE (09:45)
[2023-03-14 13:19] VITALS: BP 141/90; PULSE 80; RESP 20; TEMP 98.3
[2023-03-14] MEDS ORDERED: NITR0.4T49 SL (13:27)
== END 2023-03-14 13:44 | disposition home or self-care (01) ==
LOC: ER 08:15
DX: R07.89 Other chest pain (principal); I25.2 Old myocardial infarction; I10 Essential (primary) hypertension; E78.00 Pure hypercholesterolemia, unspecified; J44.1 Chronic obstructive pulmonary disease with (acute) exacerbation; Z88.0 Allergy status to penicillin; Z88.2 Allergy status to sulfonamides; Z79.899 Other long term (current) drug therapy; Z98.890 Other specified postprocedural states
CPT/HCPCS: 84484; 36415; 71045; 93005; 96374; 99285; J2270; Z7610 ×5

== ENCOUNTER 2023-03-28 03:51 | Emergency (ER) | payer MEDICAID ==
[~2023-03-28] VITALS: Ht 180.3 cm; Wt 91.0 kg
[2023-03-28 03:57] VITALS: TEMP 98.3; O2SAT 97
[2023-03-28 04:29] LABS: HEMATOCRIT. 44.9 % (42.0-52.0); HEMOGLOBIN. 14.8 g/dL (14.0-18.0); MEAN CORPUSCULAR HEMOGLOBIN 29.6 pg (28.0-32.0); MEAN CORPUSCULAR VOLUME 89.5 fL (80.0-94.0); MEAN PLATELET VOLUME 8.3 fl (7.4-10.4); PLATELET 196 x1000/uL (130-400); RED BLOOD CELL COUNT 5.01 mill/uL (4.7-6.1); RED CELL DISTRIBUTION WIDTH 16.7 % (11.6-14.6)
[2023-03-28 04:35] LABS: CHLORIDE 107 mEq/L (98-107)
[2023-03-28 04:53] LABS: PLATELET ESTIMATE NORMAL
[2023-03-28] MEDS ORDERED: MORPHINE SULFATE 4 MG/ML CPJ (NOT FOR IM USE) IV ONE (06:45)
[2023-03-28 09:35] VITALS: BP 140/98; PULSE 83; RESP 17
[2023-03-28] MEDS ORDERED: TOPUD PO (09:42)
== END 2023-03-28 09:53 | disposition home or self-care (01) ==
LOC: ER 03:51
DX: R07.89 Other chest pain (principal); I25.2 Old myocardial infarction; I10 Essential (primary) hypertension; J45.909 Unspecified asthma, uncomplicated; J44.1 Chronic obstructive pulmonary disease with (acute) exacerbation; E78.00 Pure hypercholesterolemia, unspecified; Z20.822 Contact with and (suspected) exposure to COVID-19; Z88.0 Allergy status to penicillin; Z88.2 Allergy status to sulfonamides; Z79.899 Other long term (current) drug therapy
CPT/HCPCS: 80053; 83880; 85025; 84484; 36415; 71045; 93005; 96374; 99285; 87426; J2270; C9803; Z7610 ×3

== ENCOUNTER 2023-06-15 16:28 | Emergency (ER) | payer MEDICAID ==
[~2023-06-15] VITALS: Ht 177.8 cm; Wt 100.0 kg
[2023-06-15 16:38] VITALS: TEMP 97.8; O2SAT 98
[2023-06-15] MEDS ORDERED: SODIUM CHLORIDE 0.9% 1,000 ML IV ONE (18:00)
[2023-06-15] MEDS ORDERED: MORPHINE SULFATE 2 MG/ML CPJ (NOT FOR IM USE) IV ONE (18:15)
[2023-06-15 18:49] VITALS: BP 122/75; PULSE 75; RESP 16
[2023-06-15 19:12] LABS: CHLORIDE 111 mEq/L (98-107); INDEX HEMOLYSI 1 (1-3); INDEX ICTERIC 1 (1-4); INDEX LIPEMIC 1 (1-3); SODIUM 142 mEq/L (136-145)
[2023-06-15 19:14] LABS: INR 1.1; PROTHROMBIN TIME 11.3 sec (9.6-11.0)
[2023-06-15 19:19] LABS: MEAN CORPUSCULAR HEMOGLOBIN 29.5 pg (28.0-32.0); MEAN CORPUSCULAR HGB CONC 32.4 g/dL (31.0-37.0); MEAN CORPUSCULAR VOLUME 90.9 fL (80.0-94.0); MEAN PLATELET VOLUME 8.3 fl (7.4-10.4); PLATELET 513 x1000/uL (130-400); RED CELL DISTRIBUTION WIDTH 19.1 % (11.6-14.6); WHITE BLOOD COUNT 13.4 x1000/uL (4.5-11.0)
[2023-06-15 19:21] LABS: ALANINE AMINOTRANSFERASE 24 IU/L (13-61); ALBUMIN 3.8 g/dL (3.4-5.0); ASPARTATE AMINOTRANSFERASE 15 IU/L (15-37); BILIRUBIN TOTAL 0.6 mg/dL (0.1-1.0); CALCIUM 9.8 mg/dL (8.5-10.1); CARBON DIOXIDE 27 mEq/L (21-32); CREATININE 0.7 mg/dL (0.6-1.3); GLUCOSE 87 mg/dL (70-105); UREA NITROGEN BLOOD 25 mg/dL (7-21)
[2023-06-15 19:26] LABS: DIFFERENTIAL COMMENT 1
[2023-06-15 20:14] LABS: ANISOCYTOSIS 2+; PLATELET ESTIMATE INCREASED
[2023-06-15 20:46] LABS: CLARITY URINE CLEAR (CLEAR); COLOR URINE YELLOW (YELLOW); GLUCOSE URINE NEGATIVE (NEGATIVE); KETONES URINE NEGATIVE (NEGATIVE); LEUKOCYTE ESTERASE URINE 2+ (NEGATIVE); NITRITE URINE NEGATIVE (NEGATIVE); OCCULT BLOOD URINE NEGATIVE (NEGATIVE); PROTEIN URINE NEGATIVE (NEGATIVE); SPECIFIC GRAVITY URINE 1.024 (1.005-1.030)
[2023-06-15] MEDS ORDERED: CLOT15CR27 TP (21:12)
[2023-06-15 21:17] LABS: RBC URINE 0-2 /hpf (0-2); SQUAMOUS EPITHELIAL CELL URINE NONE SEEN /lpf (RARE/1+)
[2023-06-15 21:18] LABS: BACTERIA URINE NONE SEEN; YEAST URINE NONE SEEN
[2023-06-15] MEDS ORDERED: IOHEXOL-300 100 ML BOTTLE ONE (21:20)
== END 2023-06-15 21:41 | disposition left against medical advice (07) ==
LOC: ER 16:28
DX: R10.32 Left lower quadrant pain (principal); R10.31 Right lower quadrant pain; J44.9 Chronic obstructive pulmonary disease, unspecified; E78.00 Pure hypercholesterolemia, unspecified; I10 Essential (primary) hypertension; I25.2 Old myocardial infarction; F31.9 Bipolar disorder, unspecified; Z79.899 Other long term (current) drug therapy; Z88.0 Allergy status to penicillin
CPT/HCPCS: 80053; 81003; 83605; 83690; 85025; 85384; 85610; 86850; 86900; 86901; 36415; 71045; 74177; 96361; 96374; 99285; Q9967; J2270; J7030; Z7610 ×2

== ENCOUNTER 2023-07-30 17:37 | Emergency (ER) | payer MEDICAID ==
[~2023-07-30] VITALS: Ht 170.2 cm; Wt 100.0 kg
[~2023-07-30 17:37] MED LIST changes: +CLOT15CR27 TP
[2023-07-30 17:41] VITALS: BP 117/75; PULSE 89; RESP 18; TEMP 98; O2SAT 98
[2023-07-30] MEDS ORDERED: FAMOTIDINE 20MG/2ML VIAL IV STA (17:52)
[2023-07-30] MEDS ORDERED: ONDANSETRON HCL 4MG/2ML INJ IV STA (17:52)
[2023-07-30] MEDS ORDERED: PANTOPRAZOLE SODIUM 40 MG/VIAL IV STA (17:52)
[2023-07-30] MEDS ORDERED: MORPHINE SULFATE 4 MG/ML CPJ (NOT FOR IM USE) IV STA (17:52)
[2023-07-30] MEDS ORDERED: SODIUM CHLORIDE 0.9% 1,000 ML IV ONE (18:00)
== END 2023-07-30 18:55 | disposition left against medical advice (07) ==
LOC: ER 17:37
DX: K62.5 Hemorrhage of anus and rectum (principal); Z53.21 Procedure and treatment not carried out due to patient leaving prior to being seen by health care provider
CPT/HCPCS: 99281; J7030

== ENCOUNTER 2023-08-12 10:14 | Emergency (ER) | payer MEDICAID ==
[~2023-08-12] VITALS: Ht 165.1 cm; Wt 90.0 kg
[2023-08-12 10:16] VITALS: O2SAT 99
[2023-08-12] MEDS ORDERED: NITROGLYCERIN 0.4MG TABLET SL SL PRN (10:30)
[2023-08-12] MEDS ORDERED: ASPIRIN 81MG TABLET PO ONE (10:30)
[2023-08-12 11:23] LABS: HEMATOCRIT. 35.8 % (42.0-52.0); HEMOGLOBIN. 11.3 g/dL (14.0-18.0); MEAN CORPUSCULAR HEMOGLOBIN 28.6 pg (28.0-32.0); MEAN CORPUSCULAR HGB CONC 31.5 g/dL (31.0-37.0); MEAN CORPUSCULAR VOLUME 90.7 fL (80.0-94.0); MEAN PLATELET VOLUME 8.2 fl (7.4-10.4); PLATELET 431 x1000/uL (130-400); RED BLOOD CELL COUNT 3.95 mill/uL (4.7-6.1); RED CELL DISTRIBUTION WIDTH 20.7 % (11.6-14.6); WHITE BLOOD COUNT 11.1 x1000/uL (4.5-11.0)
[2023-08-12 11:33] LABS: DIFFERENTIAL COMMENT 1
[2023-08-12 11:37] LABS: ALANINE AMINOTRANSFERASE 26 IU/L (10-49); ALBUMIN 4.2 g/dL (3.2-4.8); ASPARTATE AMINOTRANSFERASE 26 IU/L (<34); BILIRUBIN TOTAL 0.6 mg/dL (0.1-1.0); CALCIUM 10.4 mg/dL (8.7-10.4); CARBON DIOXIDE 27 mEq/L (21-32); CHLORIDE 108 mEq/L (98-107); CREATININE 0.8 mg/dL (0.6-1.3); GLUCOSE 114 mg/dL (70-105); POTASSIUM 4.2 mEq/L (3.5-5.1); PROTEIN TOTAL 6.2 g/dL (6.0-8.3); SODIUM 141 mEq/L (136-145); UREA NITROGEN BLOOD 13 mg/dL (9-23)
[2023-08-12 11:43] LABS: TROPONIN I HIGH SENSITIVITY < 4 ng/L (3.0-53)
[2023-08-12] MEDS ORDERED: HYDROCODONE/ACETAMINOPHEN 5/325MG TABLET PO ONE (12:00)
[2023-08-12 12:17] LABS: ANISOCYTOSIS 2+; PLATELET ESTIMATE INCREASED
[2023-08-12 14:04] VITALS: BP 149/98; PULSE 77; RESP 19; TEMP 98.1
== END 2023-08-12 14:06 | disposition left against medical advice (07) ==
LOC: ER 10:23 → CANBEDREQ 12:15 → ER 14:06
DX: R07.9 Chest pain, unspecified (principal); I20.0 Unstable angina; J45.909 Unspecified asthma, uncomplicated; F31.9 Bipolar disorder, unspecified; J44.9 Chronic obstructive pulmonary disease, unspecified; E78.00 Pure hypercholesterolemia, unspecified; I10 Essential (primary) hypertension; I25.2 Old myocardial infarction; Z88.0 Allergy status to penicillin; Z88.2 Allergy status to sulfonamides; Z85.9 Personal history of malignant neoplasm, unspecified
CPT/HCPCS: 80053; 83880; 85025; 84484; 36415; 71045; 93005; 99285; Z7610 ×2

== ENCOUNTER 2023-10-04 11:16 | Emergency (ER) | payer MEDICAID, OTHER ==
[~2023-10-04] VITALS: Ht 172.7 cm; Wt 80.0 kg
[2023-10-04 11:24] VITALS: TEMP 98.2; O2SAT 99
[2023-10-04] MEDS ORDERED: MORPHINE SULFATE 4 MG/ML CPJ (NOT FOR IM USE) IV STA (11:50)
[2023-10-04] MEDS ORDERED: ONDANSETRON HCL 4MG/2ML INJ IV STA (11:50)
[2023-10-04] MEDS ORDERED: ASPIRIN 81MG TABLET PO ONE (12:00)
[2023-10-04] MEDS ORDERED: KETOROLAC 60MG/2ML VIAL IM ONE (12:15)
[2023-10-04] MEDS ORDERED: OXYCODONE HCL/ACETAMINOPHEN 5/325MG TABLET PO ONE (12:15)
[2023-10-04 13:28] LABS: BASOPHILS % 0.5 % (0.0-2.0); HEMATOCRIT. 45.9 % (42.0-52.0); MEAN CORPUSCULAR HEMOGLOBIN 32.8 pg (28.0-32.0); MEAN CORPUSCULAR HGB CONC 32.7 g/dL (31.0-37.0); MEAN CORPUSCULAR VOLUME 100.3 fL (80.0-94.0); MEAN PLATELET VOLUME 8.2 fl (7.4-10.4); MONOCYTES % 5.8 % (2.0-8.0); NEUTROPHILS % 82.7 % (40.0-76.0); PLATELET 280 x1000/uL (130-400); RED BLOOD CELL COUNT 4.57 mill/uL (4.7-6.1); WHITE BLOOD COUNT 5.6 x1000/uL (4.5-11.0)
[2023-10-04 13:31] LABS: ADD RBC MORPHOLOGY YES; DIFFERENTIAL COMMENT 1
[2023-10-04 13:32] LABS: INR 1.1; PROTHROMBIN TIME 11.3 sec (9.6-11.0)
[2023-10-04] MEDS ORDERED: ASPIRIN 81MG TABLET PO NR (14:00)
[2023-10-04] MEDS ORDERED: MORPHINE SULFATE 4 MG/ML CPJ (NOT FOR IM USE) IV NR (14:00)
[2023-10-04] MEDS ORDERED: ONDANSETRON HCL 4MG/2ML INJ IV NR (14:00)
[2023-10-04] MEDS ORDERED: OXYCODONE HCL/ACETAMINOPHEN 5/325MG TABLET PO NR (14:00)
[2023-10-04 14:08] VITALS: BP 141/82; PULSE 83; RESP 16
[2023-10-04 16:30] LABS: ALANINE AMINOTRANSFERASE 31 IU/L (10-49); ALBUMIN 4.2 g/dL (3.2-4.8); ASPARTATE AMINOTRANSFERASE 28 IU/L (<34); BILIRUBIN TOTAL 0.7 mg/dL (0.1-1.0); CALCIUM 10.5 mg/dL (8.7-10.4); CARBON DIOXIDE 18 mEq/L (21-32); CHLORIDE 110 mEq/L (98-107); GLUCOSE 89 mg/dL (70-105); POTASSIUM 4.9 mEq/L (3.5-5.1); SODIUM 137 mEq/L (136-145); UREA NITROGEN BLOOD 23 mg/dL (9-23)
[2023-10-04 16:32] LABS: ANISOCYTOSIS 3+; PLATELET ESTIMATE NORMAL
[2023-10-04 16:44] LABS: TROPONIN I HIGH SENSITIVITY < 4 ng/L (3.0-53)
[2023-10-04 16:44] LABS: TROPONIN I HIGH SENSITIVITY < 4 ng/L (3.0-53)
== END 2023-10-04 17:01 | disposition left against medical advice (07) ==
LOC: ER 11:45
DX: R07.89 Other chest pain (principal); J45.909 Unspecified asthma, uncomplicated; E78.00 Pure hypercholesterolemia, unspecified; J44.1 Chronic obstructive pulmonary disease with (acute) exacerbation; I25.2 Old myocardial infarction; I10 Essential (primary) hypertension; Z88.0 Allergy status to penicillin; Z88.2 Allergy status to sulfonamides; Z79.899 Other long term (current) drug therapy
CPT/HCPCS: 99285; 96374; 71045; 96375; 80053; 83880; 85025; 85610; 84484; 36415; 93005; 96372; J1885; J2405; J2270

== ENCOUNTER 2024-01-25 23:06 | Emergency (ER) | payer MEDICAID ==
[~2024-01-25] VITALS: Ht 167.6 cm; Wt 100.0 kg
[2024-01-25 23:30] VITALS: O2SAT 96
[2024-01-26 01:05] LABS: HEMATOCRIT. 40.4 % (42.0-52.0); HEMOGLOBIN. 13.7 g/dL (14.0-18.0); MEAN CORPUSCULAR HEMOGLOBIN 32.8 pg (28.0-32.0); MEAN CORPUSCULAR HGB CONC 33.9 g/dL (31.0-37.0); MEAN CORPUSCULAR VOLUME 96.7 fL (80.0-94.0); MEAN PLATELET VOLUME 8.4 fl (7.4-10.4); PLATELET 460 x1000/uL (130-400); RED BLOOD CELL COUNT 4.18 mill/uL (4.7-6.1); WHITE BLOOD COUNT 12.2 x1000/uL (4.5-11.0)
[2024-01-26 01:07] LABS: DIFFERENTIAL COMMENT 1
[2024-01-26 01:17] LABS: INR 1.1; PARTIAL THROMBOPLASTIN TIME 24.9 sec (23.4-31.0); PROTHROMBIN TIME 11.9 sec (9.6-11.0)
[2024-01-26 01:20] LABS: CHLORIDE 111 mEq/L (98-107); POTASSIUM 4.1 mEq/L (3.5-5.1); SODIUM 142 mEq/L (136-145)
[2024-01-26 01:21] LABS: CALCIUM 10.8 mg/dL (8.7-10.4); CARBON DIOXIDE 28 mEq/L (21-32)
[2024-01-26] MEDS: ONDANSETRON HCL 4MG/2ML INJ IV ONE (01:21)
[2024-01-26] MEDS: MORPHINE SULFATE 4 MG/ML INJ (FOR IV/IM USE) IV ONE (01:23)
[2024-01-26 01:26] LABS: CREATININE 0.9 mg/dL (0.6-1.3); GLUCOSE 100 mg/dL (70-105); UREA NITROGEN BLOOD 10 mg/dL (9-23)
[2024-01-26 01:27] LABS: TROPONIN I HIGH SENSITIVITY 5 ng/L (3.0-53)
[2024-01-26 01:28] LABS: ALANINE AMINOTRANSFERASE 25 IU/L (10-49); ALBUMIN 4.4 g/dL (3.2-4.8); ASPARTATE AMINOTRANSFERASE 20 IU/L (<34); BILIRUBIN TOTAL 0.7 mg/dL (0.1-1.0); ETHANOL BLOOD < 10 mg/dL (<10); PROTEIN TOTAL 6.6 g/dL (6.0-8.3)
[2024-01-26] MEDS: MORPHINE SULFATE 4 MG/ML INJ (FOR IV/IM USE) IV NR (02:15)
[2024-01-26 03:05] LABS: PLATELET ESTIMATE INCREASED
[2024-01-26] MEDS ORDERED: IOHEXOL-350 100 ML BOTTLE ONE (05:33)
[2024-01-26 08:24] VITALS: BP 155/96; PULSE 98; RESP 22; TEMP 97.9
== END 2024-01-26 08:27 | disposition short-term general hospital (02) ==
LOC: ER 23:06
DX: R07.9 Chest pain, unspecified (principal); I10 Essential (primary) hypertension; F31.9 Bipolar disorder, unspecified; J44.9 Chronic obstructive pulmonary disease, unspecified; E78.00 Pure hypercholesterolemia, unspecified; I25.2 Old myocardial infarction; Z88.0 Allergy status to penicillin; Z88.2 Allergy status to sulfonamides
CPT/HCPCS: 80053; 80320; 83880; 85025; 85610; 85730; 84484; 36415; 71045; 93005; 96374; 96375; 96376; 99285; 71275; Q9967; J2405; J2270; G0480

== ENCOUNTER 2024-02-26 14:16 | Emergency (ER) | payer MEDICAID ==
[~2024-02-26] VITALS: Ht 162.6 cm; Wt 100.0 kg
[2024-02-26 14:23] VITALS: O2SAT 100
[2024-02-26] MEDS: IBUPROFEN 600MG TABLET PO ONE (16:30)
[2024-02-26] MEDS: BACITRACIN ZINC OINT UDPKT TOP ONE (17:35)
[2024-02-26] MEDS: LIDOCAINE HCL/PF 1% 10 MG/ML 5ML VIAL INFIL ONE (17:36)
[2024-02-26 18:02] VITALS: BP 147/88; PULSE 80; RESP 16; TEMP 98.2
== END 2024-02-26 18:34 | disposition home or self-care (01) ==
LOC: ER 14:26
DX: S61.307A Unspecified open wound of left little finger with damage to nail, initial encounter (principal); Z88.0 Allergy status to penicillin; Z88.2 Allergy status to sulfonamides; W25.XXXA Contact with sharp glass, initial encounter; Y93.89 Activity, other specified; Y92.89 Other specified places as the place of occurrence of the external cause; Y99.8 Other external cause status
CPT/HCPCS: 99282; J3490; Z7610 ×2

== ENCOUNTER 2024-07-31 06:03 | Emergency (ER) | payer MEDICAID ==
[~2024-07-31] VITALS: Ht 172.7 cm; Wt 100.0 kg
[2024-07-31 06:20] VITALS: BP 132/83; PULSE 100; RESP 16; TEMP 98.4; O2SAT 100
[2024-07-31 07:42] LABS: BASOPHILS % 0.7 % (0.0-2.0); HEMATOCRIT. 40.7 % (42.0-52.0); HEMOGLOBIN. 13.1 g/dL (14.0-18.0); LYMPHOCYTES % 7.2 % (20.0-50.0); MEAN CORPUSCULAR HEMOGLOBIN 31.2 pg (28.0-32.0); MEAN CORPUSCULAR HGB CONC 32.1 g/dL (31.0-37.0); MEAN CORPUSCULAR VOLUME 97.1 fL (80.0-94.0); MEAN PLATELET VOLUME 8.9 fl (7.4-10.4); MONOCYTES % 4.4 % (2.0-8.0); NEUTROPHILS % 86.7 % (40.0-76.0); PLATELET 365 x1000/uL (130-400); RED BLOOD CELL COUNT 4.19 mill/uL (4.7-6.1); RED CELL DISTRIBUTION WIDTH 19.8 % (11.6-14.6); WHITE BLOOD COUNT 11.1 x1000/uL (4.5-11.0)
[2024-07-31] MEDS ORDERED: ONDANSETRON 4MG ODT PO ONE (07:45)
[2024-07-31 08:01] LABS: CHLORIDE 113 mEq/L (98-107); SODIUM 144 mEq/L (136-145)
[2024-07-31 08:02] LABS: CARBON DIOXIDE 25 mEq/L (21-32)
[2024-07-31 08:03] LABS: CALCIUM 9.7 mg/dL (8.7-10.4)
[2024-07-31 08:07] LABS: CREATININE 0.9 mg/dL (0.6-1.3); GLUCOSE 102 mg/dL (70-105); UREA NITROGEN BLOOD 8 mg/dL (9-23)
[2024-07-31 08:08] LABS: TROPONIN I HIGH SENSITIVITY 5 ng/L (3.0-53)
[2024-07-31] MEDS ORDERED: NITR0.4T49 SL (09:54)
[2024-07-31] MEDS: ONDANSETRON 4MG ODT PO NR (10:10)
== END 2024-07-31 10:25 | disposition home or self-care (01) ==
LOC: ER 06:03
DX: R07.89 Other chest pain (principal); E78.00 Pure hypercholesterolemia, unspecified; I25.2 Old myocardial infarction; I10 Essential (primary) hypertension; Z88.2 Allergy status to sulfonamides; Z88.0 Allergy status to penicillin; Z79.899 Other long term (current) drug therapy; Z86.73 Personal history of transient ischemic attack (TIA), and cerebral infarction without residual deficits
CPT/HCPCS: 99285; 71045; 80048; 85025; 84484; 36415; 93005; Q0162